=== PATIENT | female | born 1935 | race Caucasian/White ===

== ENCOUNTER → 2019-01-16 | Day surgery (SDC) | payer MEDICARE | END | disposition home or self-care (01) | LOC: MSO 09:11 | DX: H25.11 Age-related nuclear cataract, right eye (principal); Z79.02 Long term (current) use of antithrombotics/antiplatelets; Z79.899 Other long term (current) drug therapy; H40.9 Unspecified glaucoma; I10 Essential (primary) hypertension; Z86.73 Personal history of transient ischemic attack (TIA), and cerebral infarction without residual deficits; R42 Dizziness and giddiness | CPT/HCPCS: 00142; J0171; J2250; J2370; J3010; V2632 ==